=== PATIENT | female | born 1990 | race African-American/Black ===

== ENCOUNTER 2019-07-09 16:18 | Emergency (ER) | payer MEDICARE ==
[~2019-07-09] VITALS: Ht 167.6 cm; Wt 91.6 kg
[2019-07-09] MEDS ORDERED: PINAWAY50 MG/1 ML PO (17:21)
[2019-07-09] MEDS ORDERED: ZOFRAN4 MG PO (17:21)
== END 2019-07-09 17:32 | disposition home or self-care (01) ==
LOC: FSED 16:18
DX: R11.2 Nausea with vomiting, unspecified (principal); R19.7 Diarrhea, unspecified; B80 Enterobiasis
CPT/HCPCS: 81003; 81025; 99283